=== PATIENT | female | born 1970 | race Caucasian/White ===

== ENCOUNTER 2017-11-25 18:47 | Emergency (ER) | payer BC ==
[2017-11-25 18:58] VITALS: BP 101/64
--- NOTE | 2017-11-25 19:44 | UC ---
Ear Complaint HPI - HPI Summary HPI Summary: 47 yo WF h/o frequent ear infections as a child and also 3x last year and now this year c/o ear fullness and associated muffled sounds in both ears x 2 weeks after the start of a cold. This is recurrent and denies pains and at times has serous d/c from one of the ears - History of Current Complaint Chief Complaint: UCEar Stated Complaint: HEAD COLD Time Seen by Provider: 11/25/17 19:11 Hx Obtained From: Patient Hx Last Menstrual Period: 09/02/12 Onset/Duration: Sudden Onset Severity Initially: Moderate Severity Currently: Moderate Pain Intensity: 2 Aggravating Factors: Cold - Allergies/Home Medications Allergies/Adverse Reactions: Allergies Allergy/AdvReac Type Severity Reaction Status Date / Time No Known Allergies Allergy Verified 11/25/17 18:58 PMH/Surg Hx/FS Hx/Imm Hx - Additional Past Medical History Additional PMH: recurrent OM - Surgical History Surgical History: Yes Surgery Procedure, Year, and Place: 1996 - Family History Known Family History: Negative: Cardiac Disease, Hypertension, Diabetes - Social History Alcohol Use: None Substance Use Type: None Smoking Status (MU): Heavy Every Day Tobacco Smoker Amount Used/How Often: 1/2 ppd - Immunization History Most Recent Tetanus Shot: UTD Review of Systems Constitutional: Negative Skin: Negative Eyes: Negative ENT: Sinus Congestion, Other - ear congestion and infection Respiratory: Negative Cardiovascular: Negative Gastrointestinal: Negative Genitourinary: Negative Motor: Negative Neurovascular: Negative Musculoskeletal: Negative Neurological: Negative Psychological: Negative All Other Systems Reviewed And Are Negative: Yes Physical Exam Triage Information Reviewed: Yes Vital Signs: Initial Vital Signs Temp 36.4 C 11/25/17 18:52 Pulse 62 11/25/17 18:52 Resp 18 11/25/17 18:52 BP 101/64 11/25/17 18:52 Pulse Ox 98 11/25/17 18:52 Eye Exam: Normal ENT: Positive: Other - serous d/c on right ear visualized in external canal, effusion behind left TM Dental Exam: Normal Neck exam: Normal Neck: Positive: 1 Respiratory Exam: Normal Cardiovascular Exam: Normal Abdominal Exam: Normal Musculoskeletal Exam: Normal Neurological Exam: Normal Psychological Exam: Normal Skin Exam: Normal Ear Complaint Course/Dx - Differential Dx/Diagnosis Provider Diagnoses: serous OM Discharge - Discharge Plan Condition: Stable Disposition: HOME Prescriptions: Azithromycin TAB* [Zithromax TAB (Z-TYSON) 250 mg #6 tabs] 2 tab PO .TODAY, THEN 1 DAILY #1 tyson Patient Education Materials: Serous Otitis Media (ED) Referrals: Henry Burk MD [Primary Care Provider] - Additional Instructions: Please follow up with ENT saira
== END 2017-11-25 19:50 | disposition home or self-care (01) ==
LOC: UCEAST 18:47
DX: H65.91 Unspecified nonsuppurative otitis media, right ear (principal); F17.210 Nicotine dependence, cigarettes, uncomplicated
CPT/HCPCS: 99211; G0463